=== PATIENT | female | born 1995 | race Caucasian/White ===

== ENCOUNTER 2016-08-16 17:30 | Emergency (ER) | payer OTHER ==
[2016-08-16] MEDS ORDERED: NS 0.9% 1000 ML* 2,000 ML IV ONE (18:01)
[2016-08-16 18:19] LABS: Urine Bacteria 1+ (Absent); Urine Bilirubin Negative (Negative); Urine Glucose Negative (Negative); Urine Nitrite Negative (Negative)
[2016-08-16] MEDS ORDERED: Fluconazole 100 MG TAB* TAB PO ONE (20:13)
--- NOTE | 2016-08-16 20:50 | PN ---
Progress Note - Progress Note Note: I preformed pelvic exam for Dr Martinez and patient preference. External exam appeared normal. Vaginal canal appeared normal with some excessive discharge white in color normal vs alisia. Culture swabs chlam/gonn and affirm were obtained. No cervical motion tenderness on bimanual exam, os appeared closed without discharge or bleeding. Tender on palpation of uterus. Non-tender adnexa.
[2016-08-17 00:44] VITALS: BP 115/79
--- NOTE | 2016-08-18 16:40 | ED ---
Miah Zuñiga Anna, scribed for Serg Martinez MD on 08/16/16 at 1842 . GI/ HPI - HPI Summary HPI Summary: Patient is a 21 y/o female coming to [facility] presenting with gradual onset of lower abdominal discomfort that began one week ago. The discomfort radiates to her back sometimes. She also has occasional chills. She has experienced increased urgency and frequency of urination. Denies pain during urination. LNMP was just over one month ago. She started Adderall 1.5 years ago and reports urinary symptoms as a side effect. She reports that she is comfortable at this time. - History of Current Complaint Chief Complaint: EDUrogenitalProblems Time Seen by Provider: 08/16/16 18:10 Stated Complaint: POSS UTI Hx Obtained From: Patient Onset/Duration: Started Days Ago, Still Present Timing: Lasting Days Severity: Moderate Current Severity: Moderate - Allergy/Home Medications Allergies/Adverse Reactions: Allergies Allergy/AdvReac Type Severity Reaction Status Date / Time No Known Allergies Allergy Verified 08/16/16 18:37 PMH/Surg Hx/FS Hx/Imm Hx Endocrine/Hematology History: Denies: Hx Diabetes Cardiovascular History: Denies: Hx Myocardial Infarction Infectious Disease History: No Infectious Disease History: Denies: Traveled Outside the [place] in Last 30 Days - Family History Known Family History: Positive: Cardiac Disease, Diabetes - Social History Occupation: Student Lives: With Family Alcohol Use: None Hx Substance Use: No Substance Use Type: Reports: None Hx Tobacco Use: No Smoking Status (MU): Never Smoked Tobacco Review of Systems Positive: Chills Positive: Abdominal Pain - discomfort Positive: frequency, flank pain, urgency. Negative: burning, dysuria All Other Systems Reviewed And Are Negative: Yes Physical Exam Triage Information Reviewed: Yes Vital Signs On Initial Exam: Initial Vitals Temp Pulse Resp BP Pulse Ox 97.9 F 67 20 115/76 100 08/16/16 17:32 08/16/16 17:32 08/16/16 17:32 08/16/16 17:32 08/16/16 17:32 Vital Signs Reviewed: Yes Appearance: Positive: Well-Appearing, No Pain Distress Skin: Positive: Warm, Skin Color Reflects Adequate Perfusion, Dry Head/Face: Positive: Normal Head/Face Inspection Eyes: Positive: Normal ENT: Positive: Normal ENT inspection Neck: Positive: Supple, Nontender Respiratory/Lung Sounds: Positive: Clear to Auscultation, Breath Sounds Present Cardiovascular: Positive: RRR Abdomen Description: Positive: Nontender, Soft Bowel Sounds: Positive: Present Musculoskeletal: Positive: Normal Neurological: Positive: Normal Psychiatric: Positive: Affect/Mood Appropriate Diagnostics - Vital Signs Vital Signs Temp Pulse Resp BP Pulse Ox 08/16/16 17:32 97.9 F 67 20 115/76 100 - Laboratory Lab Results: Lab Results 08/16/16 Range/Units 18:10 Urine Color Yellow Urine Appearance Clear Urine pH 7.0 (5-9) Ur Specific Trail 1.010 (1.010-1.030) Urine Protein Negative (Negative) Urine Ketones Negative (Negative) Urine Blood Negative (Negative) Urine Nitrate Negative (Negative) Urine Bilirubin Negative (Negative) Urine Urobilinogen Negative (Negative) Ur Leukocyte Esterase Trace H (Negative) Urine WBC (Auto) Trace(0-5/hpf) (Absent) Urine RBC (Auto) Absent (Absent) Ur Squamous Epith Cells Present H (Absent) Urine Bacteria 1+ H (Absent) Urine Glucose Negative (Negative) Lab Statement: Any lab studies that have been ordered have been reviewed, and results considered in the medical decision making process. Re-Evaluation - Re-Evaluation First Eval Re-Evaluation Time: 19:21 Change: Unchanged Comment: Discussed results of UA with patient. Patient agrees to a pelvic exam, which will be completed by DAYTON Quiñonez. Second Eval Re-Evaluation Time: 20:11 Change: Unchanged Comment: Discussed plan of care with patient. Patient agrees with plan. GIGU Course/Dx - Course Course Of Treatment: Ms. Pulliam came in with dysuria and some mild low abd pain. Her U/A was negative but her pelvic exam was suspicious for alisia. I will treat accordingly and encourage F/U. - Diagnoses Provider Diagnoses: Pelvic pain Discharge - Discharge Plan Condition: Stable Disposition: HOME Patient Education Materials: Dysuria (ED), Abdominal Pain (ED) Referrals: Abdias Gallegos MD. [Primary Care Provider] - [facility] [Outside] Additional Instructions: Follow up with primary care physician or [facility] within 48 hours. Return to the emergency department for changing or worsening symptoms. The documentation as recorded by the Miah gaspar Anna accurately reflects the service I personally performed and the decisions made by , Serg Martinez MD.
== END 2016-08-16 21:08 | disposition home or self-care (01) ==
LOC: ED 17:30
DX: R10.2 Pelvic and perineal pain (principal)
CPT/HCPCS: 81003; 81015; 87086; 87480; 87491; 87510; 87591; 87661; 99282; A9270-GY

== ENCOUNTER 2017-01-20 21:09 | Emergency (ER) | payer OTHER ==
[2017-01-20 21:14] VITALS: BP 120/70
--- NOTE | 2017-01-21 00:39 | ED ---
Skin Complaint - HPI Summary HPI Summary: Pt here w/ Lt forearm redness w/ streaking with swelling earlier today. Associated sx of tightness within the skin. Was seen at health center and advised to be seen for possible infection as she has a healing cut on her arm. This cut was from shaving her arms - started to heal but she shaved over it and it returned. Cut is dry and mostly healed today - no scabbing - pink, dry skin here. Denies stiffness of joints, fever, chills, N/V/D, trouble breathing or swallowing. No other injury here including but not limited to scratches, insect bite, etc. - History of Current Complaint Chief Complaint: EDRashSkinAbscess Time Seen by Provider: 01/20/17 23:17 Stated Complaint: POSS INFECTION IN LEFT ARM Hx Obtained From: Patient Pain Intensity: 5 - Allergy/Home Medications Allergies/Adverse Reactions: Allergies Allergy/AdvReac Type Severity Reaction Status Date / Time No Known Allergies Allergy Verified 08/16/16 18:37 PMH/Surg Hx/FS Hx/Imm Hx Previously Healthy: Yes Endocrine/Hematology History: Denies: Hx Diabetes, Autoimmune Disease Cardiovascular History: Denies: Hx Myocardial Infarction Respiratory History: Denies: Hx Asthma, Hx Seasonal Allergies - Immunization History Immunizations Up to Date: Yes Infectious Disease History: No Infectious Disease History: Denies: Traveled Outside the [place] in Last 30 Days - Family History Known Family History: Positive: Cardiac Disease, Diabetes - Social History Occupation: Student Lives: Alone Alcohol Use: None Hx Substance Use: No Substance Use Type: Reports: None Hx Tobacco Use: No Smoking Status (MU): Never Smoked Tobacco Review of Systems Constitutional: Negative Eyes: Negative ENT: Negative Cardiovascular: Negative Respiratory: Negative Gastrointestinal: Negative Positive: no symptoms reported Musculoskeletal: Negative Skin: Other - see HPI Neurological: Negative Positive: Anxious All Other Systems Reviewed And Are Negative: Yes Physical Exam Triage Information Reviewed: Yes Vital Signs On Initial Exam: Initial Vitals Temp Pulse Resp BP Pulse Ox 98.2 F 88 16 120/70 100 01/20/17 21:11 01/20/17 21:11 01/20/17 21:11 01/20/17 21:11 01/20/17 21:11 Vital Signs Reviewed: Yes Appearance: Positive: Well-Appearing, No Pain Distress, Well-Nourished Skin: Positive: Warm, Dry - no redness, swelling or streaking along affected area of Lt forearm however pt has a picture of her arm earlier today which appears to be a mildly erythematous streaking loop around distal end of tattoo - appears to be dermographia or erysipelas Head/Face: Positive: Normal Head/Face Inspection Eyes: Positive: EOMI ENT: Positive: Hearing grossly normal Respiratory/Lung Sounds: Positive: Breath Sounds Present. Negative: Stridor, Wheezes Cardiovascular: Positive: Normal, RRR, Pulses are Symmetrical in both Upper and Lower Extremities, S1, S2. Negative: Murmur, Rub Abdomen Description: Positive: Nontender, Soft Bowel Sounds: Positive: Present Musculoskeletal: Positive: Normal, Strength/ROM Intact Neurological: Positive: Normal, Sensory/Motor Intact, Alert, Oriented to Person Place, Time, CN Intact II-III Psychiatric: Positive: Anxious - pt inquires if she could have a worm embedded in her skin here - denies recent exposure to soil, animals, feces Diagnostics - Vital Signs Vital Signs Temp Pulse Resp BP Pulse Ox 01/20/17 21:11 98.2 F 88 16 120/70 100 - Laboratory Lab Statement: Any lab studies that have been ordered have been reviewed, and results considered in the medical decision making process. Course/Dx - Course Course Of Treatment: Pt presents w/ rash that was present earlier today - is not present now however image appears to be erysipelas from reinjury skin wound as dermographia ruled out (had patient scratch her other arm w/o obvious changes ). Advised to try NSAID's and anti-histamine tonight. If redness returns tomorrow, may start anbx. She will f/u w/ health center and return to ED if she develops fever, chills, stiffness, vomiting, chest pain. - Diagnoses Provider Diagnoses: Rash and nonspecific skin eruption Discharge - Discharge Plan Condition: Stable Disposition: HOME Prescriptions: Sulfamethox/Trimethoprim DS* [Bactrim DS 800/160 TAB*] 1 tab PO BID #20 tab Patient Education Materials: Dermatitis (ED) Referrals: [facility] [Outside] Additional Instructions: You do not have any active reactions taking place at this time. It was discussed however you could have had fleeting erysipelas, a superficial infection of the very top layer of skin. If the redness and swelling do not return, no further action is necessary. However if you do have return of symptoms, start antibiotics as directed - they have been sent to the pharmacy in the event you need to start taking them. In the meantime, you may take ibuprofen and benadryl for soreness, swelling. It is suspected this was caused by you shaving your arms. When you shave, you create microtears in the skin, allowing bacteria to enter. It is advised that you refrain from shaving and if you must shave, make sure you wash your skin well before and after and use a clean razor every time. *If you develop fever, chills, streaking up arm, stiffness of joint, neck pain, headache, seek medical attention
== END 2017-01-21 01:03 | disposition home or self-care (01) ==
LOC: ED 21:09
DX: R21 Rash and other nonspecific skin eruption (principal)
CPT/HCPCS: 99281

== ENCOUNTER 2017-09-29 01:56 | Emergency (ER) | payer OTHER ==
[2017-09-29] MEDS ORDERED: Ibuprofen TAB* 600 MG PO ONE (04:46)
[2017-09-29] MEDS ORDERED: Amoxicillin/Clavulanate TAB* 875 MG PO ONE (04:47)
--- NOTE | 2017-09-29 05:03 | ED ---
Kassi Zuñiga Emily, scribed for Saira Marrero MD on 09/29/17 at 0452 . Throat Pain/Nasal Congestion - HPI Summary HPI Summary: This patient is a 22 year old F to [facility] accompanied by friend with a chief complaint of swollen tonsils that began at 1600 yesterday. The patient rates the pain 6/10 in severity. Symptoms aggravated by nothing. Symptoms alleviated by nothing. Patient denies fever. - History of Current Complaint Chief Complaint: EDThroatPain Time Seen by Provider: 09/29/17 04:37 Hx Obtained From: Patient Onset/Duration: Sudden Onset, Lasting Hours, Still Present Severity: Mild - Allergies/Home Medications Allergies/Adverse Reactions: Allergies Allergy/AdvReac Type Severity Reaction Status Date / Time No Known Allergies Allergy Verified 04/06/17 10:23 Home Medications: Home Medications Dextroamphetamine/Amphetamine [Adderall Xr 30 mg Capsule] 15 mg PO BID 09/29/17 [History Confirmed 09/29/17] Lisdexamfetamine Dimesylate [Vyvanse] 60 mg PO DAILY 09/29/17 [History Confirmed 09/29/17] PMH/Surg Hx/FS Hx/Imm Hx Previously Healthy: Yes Endocrine/Hematology History: Denies: Hx Diabetes Cardiovascular History: Denies: Hx Myocardial Infarction Respiratory History: Denies: Hx Asthma, Hx Seasonal Allergies - Immunization History Immunizations Up to Date: Yes Infectious Disease History: No Infectious Disease History: Denies: Traveled Outside the [place] in Last 30 Days - Family History Known Family History: Positive: Cardiac Disease, Diabetes - Social History Occupation: Student Lives: Dormitory/Roommates Alcohol Use: Occasionally Hx Substance Use: No Substance Use Type: Reports: None Hx Tobacco Use: No Smoking Status (MU): Never Smoked Tobacco Review of Systems Negative: Fever ENT: Other - Positive swollen tonsils All Other Systems Reviewed And Are Negative: Yes Physical Exam - Summary Physical Exam Summary: VITAL SIGNS: Reviewed. GENERAL: ~Patient is a well-developed and nourished female who is lying comfortable in the stretcher. Patient is not in any acute respiratory distress. HEAD AND FACE: No signs of trauma. No ecchymosis, hematomas or skull depressions. No sinus tenderness. EYES: PERRLA, EOMI x 2, No injected conjunctiva, no nystagmus. EARS: Hearing grossly intact. Ear canals and tympanic membranes are within normal limits. MOUTH: Oropharynx within normal limits. Post nasal drip. Tonsils are nml NECK: Supple, trachea is midline, no adenopathy, no JVD, no carotid bruit, no c- spine tenderness, neck with full ROM. CHEST: Symmetric, no tenderness at palpation LUNGS: Clear to auscultation bilaterally. No wheezing or crackles. CVS: Regular rate and rhythm, S1 and S2 present, no murmurs or gallops appreciated. ABDOMEN: Soft, non-tender. No signs of distention. No rebound no guarding, and no masses palpated. Bowel sounds are normal. EXTREMITIES: FROM in all major joints, no edema, no cyanosis or clubbing. NEURO: Alert and oriented x 3. No acute neurological deficits. Speech is normal and follows commands. SKIN: Dry and warm Triage Information Reviewed: Yes Vital Signs On Initial Exam: Initial Vitals Temp Pulse Resp BP Pulse Ox 98.2 F 66 16 123/66 99 09/29/17 02:00 09/29/17 02:00 09/29/17 02:00 09/29/17 02:00 09/29/17 02:00 Vital Signs Reviewed: Yes Diagnostics - Vital Signs Vital Signs Temp Pulse Resp BP Pulse Ox 09/29/17 02:00 98.2 F 66 16 123/66 99 - Laboratory Lab Results: Lab Results 09/29/17 Range/Units 02:44 Group A Strep Rapid Negative (Negative) Lab Statement: Any lab studies that have been ordered have been reviewed, and results considered in the medical decision making process. EENT Course/Dx - Course Course Of Treatment: This patient is a 22 year old F to [facility] accompanied by friend with a chief complaint of swollen tonsils that began at 1600 yesterday. Post nasal drip physical exam finding - Diagnoses Provider Diagnoses: Post-nasal drip, Pharyngitis Discharge - Sign-Out/Discharge Documenting (check all that apply): Discharge/Admit/Transfer - Discharge home - Discharge Plan Condition: Stable Disposition: HOME Patient Education Materials: Pharyngitis (ED), Postnasal Drip (DC) Referrals: Abdias Gallegos MD. [Primary Care Provider] - 2 Days Additional Instructions: RETURN TO THE EMERGENCY DEPARTMENT FOR NEW OR WORSENING SYMPTOMS The documentation as recorded by the Kassi gaspar Emily accurately reflects the service I personally performed and the decisions made by me, Saira Marrero MD.
[2017-09-29 05:14] VITALS: BP 119/78
== END 2017-09-29 05:10 | disposition home or self-care (01) ==
LOC: ED 01:56
DX: R09.82 Postnasal drip (principal); J02.9 Acute pharyngitis, unspecified
CPT/HCPCS: 87651; 99282; A9270-GY